=== PATIENT | male | born 1945 ===

== ENCOUNTER 2022-06-21 04:18 | Day surgery (SDC) | payer BC, OTHER ==
[2022-06-20 14:10] VITALS: BMI 38.9
[2022-06-21] MEDS ORDERED: TETRACAINE/BENZOCAINE/BUTAMBEN 20 GM SPR TP ONE (08:43)
[2022-06-21] MEDS ORDERED: LIDOCAINE VISCOUS 2% ORAL/TOP 15 ML UNIT-DOSE CUP ONE (08:44)
[2022-06-21 09:37] VITALS: TEMP 98
[2022-06-21 10:08] VITALS: BP 125/65; PULSE 107; RESP 21
== END 2022-06-21 10:23 | disposition home or self-care (01) ==
LOC: JASU-ENDO 04:18
PROVIDERS: ATTEND Internal Medicine Gastroenterology
PROC: 0DB68ZX Excision of Stomach, Via Natural or Artificial Opening Endoscopic, Diagnostic (ICD-10-PCS; 2022-06-21)
PROC: 0DB78ZX Excision of Stomach, Pylorus, Via Natural or Artificial Opening Endoscopic, Diagnostic (ICD-10-PCS; 2022-06-21)
PROC: 0DJD8ZZ Inspection of Lower Intestinal Tract, Via Natural or Artificial Opening Endoscopic (ICD-10-PCS; principal; 2022-06-21 08:30)
DX: Z12.11 Encounter for screening for malignant neoplasm of colon (principal); K29.50 Unspecified chronic gastritis without bleeding; Z86.010 Personal history of colon polyps; R10.84 Generalized abdominal pain; I10 Essential (primary) hypertension; E11.9 Type 2 diabetes mellitus without complications; Z79.84 Long term (current) use of oral hypoglycemic drugs
CPT/HCPCS: 82962; 88305-TC; 88342-TC; 93005; 93010

== ENCOUNTER 2022-10-18 05:36 | Day surgery (SDC) | payer BC, OTHER ==
[2022-10-17 10:38] VITALS: BMI 37.8
[2022-10-18 11:24] VITALS: BP 117/50; PULSE 67; RESP 17
[2022-10-18 11:41] VITALS: TEMP 98.2
== END 2022-10-18 11:20 | disposition home or self-care (01) ==
LOC: JASU-ENDO 05:36
PROVIDERS: ATTEND Internal Medicine Gastroenterology
PROC: 0DJD8ZZ Inspection of Lower Intestinal Tract, Via Natural or Artificial Opening Endoscopic (ICD-10-PCS; principal; 2022-10-18 10:30)
DX: Z12.11 Encounter for screening for malignant neoplasm of colon (principal); K63.5 Polyp of colon; Z86.010 Personal history of colon polyps
CPT/HCPCS: 82962

== ENCOUNTER 2023-02-14 05:09 | Day surgery (SDC) | payer BC, OTHER ==
[2023-02-12 09:54] VITALS: BMI 37.1
[2023-02-14 10:21] VITALS: TEMP 97.7
[2023-02-14 10:55] VITALS: BP 119/56; PULSE 61; RESP 16
== END 2023-02-14 11:20 | disposition home or self-care (01) ==
LOC: JASU-ENDO 05:09
PROVIDERS: ATTEND Internal Medicine Gastroenterology
PROC: 0DJD8ZZ Inspection of Lower Intestinal Tract, Via Natural or Artificial Opening Endoscopic (ICD-10-PCS; principal; 2023-02-14 09:30)
DX: Z12.11 Encounter for screening for malignant neoplasm of colon (principal); Z86.010 Personal history of colon polyps
CPT/HCPCS: 82962